=== PATIENT | female | born 1950 | race Caucasian/White ===

== ENCOUNTER 2022-10-23 12:12 | Inpatient (IN) | payer MEDICARE ==
[2022-10-23] MEDS ORDERED: Glucagon 1 MG/ML KIT IM PRN (13:47)
[2022-10-23] MEDS ORDERED: Dextrose 50% Abboject 50 ML SYRINGE SLOW IVP PRN (13:47)
[2022-10-23] MEDS ORDERED: Guaifenesin DM 100-10/5 ML UDCUP PO PRN (13:48)
[2022-10-23] MEDS ORDERED: Sodium Chloride 0.65% Nasal 44 ML BOT EA NARE PRN (13:48)
[2022-10-23] MEDS ORDERED: Acetaminophen 325 MG TAB PO PRN (13:48)
[2022-10-23] MEDS ORDERED: Benzonatate 100 MG CAP PO PRN (13:48)
[2022-10-23] MEDS ORDERED: Acetaminophen 650 MG Suppository PR PRN (13:48)
[2022-10-23] MEDS ORDERED: Calcium Carbonate 500 MG ChewTAB PO PRN (13:48)
[2022-10-23] MEDS ORDERED: Ondansetron ODT 4 MG TAB PO PRN ×2 (13:48→19:35)
[2022-10-23] MEDS ORDERED: Benzocaine/Menthol 1 LOZ LOZ PO PRN (13:48)
[2022-10-23] MEDS ORDERED: Artificial Tear Sol 15 ML BOT EA EYE PRN (13:48)
[2022-10-23 18:04] VITALS: BMI 34.2
[2022-10-23] MEDS ORDERED: Ipratropium/Albuterol 3 ML NEB NEB PRN (19:35)
[2022-10-23] MEDS ORDERED: traMADol HCl 50 MG TAB PO PRN (19:35)
[2022-10-23] MEDS ORDERED: Non-Formulary Item 1 EACH (Dulaglutide [Trulicity] 1.5 MG/0.5 ML Pen.Injctr) SC SCH (19:45)
[2022-10-23] MEDS: Aspirin 81 mg Enteric Coated Tablet PO SCH (21:50)
[2022-10-23] MEDS: Cyclobenzaprine 10 MG TAB PO PRN (21:53)
[2022-10-24] MEDS: HYDROcodone/Acetaminophen 5/325 mg Tablet PO PRN ×4 (00:12→21:51)
[2022-10-24 06:15] LABS: #Basophils 0.1 thou/uL (0.0-0.2); #Eosinphils 0.2 thou/uL (0.0-0.7); #Lymphocytes 2.1 thou/uL (1.20-3.40); #Monocytes 0.5 thou/uL (0.11-0.59); #Neutrophils 3.5 thou/uL (1.40-6.50); %Basophils 1.4 % (0.0-1.0); %Eosinophils 3.7 % (0.0-10.0); %Lymphocytes 32.6 % (21.0-51.0); %Monocytes 7.9 % (0.0-10.0); %Neutrophils 54.4 % (42.0-75.0); Hemoglobin 9.4 g/dL (12.0-16.0); Mean Corpuscular HGB CONC 32.5 g/dL (32.0-36.0); Mean Corpuscular Hemoglobin 28.3 pg (27.0-31.0); Mean Corpuscular Volume 87.1 fl (78.0-98.0); Mean Platelet Volume 5.7 fL (7.4-10.4); Platelet Count 379 10x3/uL (130-400); RBC Distribution Width 12.7 % (11.5-14.5); White Blood Cell (WBC) Count 6.4 10x3/uL (4.8-10.8)
[2022-10-24 06:34] LABS: ALT (SGPT) 27 U/L (8-55); AST (SGOT) 28 U/L (5-34); Albumin 3.3 g/dL (3.4-4.8); Alkaline Phosphatase 131 U/L (40-110); Anion Gap 15 mmol/L (10-20); BUN (Urea Nitrogen) 15 mg/dL (9.8-20.1); Bilirubin, Total 0.4 mg/dL (0.2-1.2); Calc. Creatinine Clearance 116 mL/min (70-130); Calcium 8.9 mg/dL (7.8-10.44); Carbon Dioxide 22 mmol/L (23-31); Chloride 107 mmol/L (98-107); Estimated GFR 96; Globulin 2.6 g/dL (2.4-3.5); Glucose 77 mg/dL (83-110); Potassium 3.4 mmol/L (3.5-5.1); Protein, Total 5.9 g/dL (5.8-8.1); Sodium 141 mmol/L (136-145)
[2022-10-24] MEDS: Cyclobenzaprine 10 MG TAB PO PRN ×2 (09:03→21:51)
[2022-10-24] MEDS: Venlafaxine HCl XR 75 MG CAP PO SCH (09:03)
[2022-10-24] MEDS: Aspirin 81 mg Enteric Coated Tablet PO SCH ×2 (09:04→20:44)
[2022-10-24] MEDS: Gabapentin 300 MG CAP PO SCH (09:04)
[2022-10-24] MEDS: Amlodipine 10 MG TAB PO SCH (09:05)
[2022-10-24] MEDS: Cyanocobalamin (Vitamin B-12) 1,000 MCG TAB PO SCH (09:05)
[2022-10-24] MEDS: Cholecalciferol (Vitamin D3) 400 UNITS TAB PO SCH (09:05)
[2022-10-24] MEDS: Famotidine 20 MG TAB PO SCH (09:06)
[2022-10-24] MEDS: Docusate Sodium 100 MG/10 ML UDCUP PO SCH (09:06)
[2022-10-24] MEDS: Empagliflozin 10 MG TAB PO SCH (09:06)
[2022-10-24] MEDS: Atorvastatin Calcium 40 MG TAB PO SCH (09:07)
[2022-10-24] MEDS: Lantus 1000 UNITS/10 ML VIAL SC SCH (09:14)
[2022-10-24] MEDS: D-Mannose [Azo D-Mannose] 500 MG Capsule PO SCH (09:54)
[2022-10-24] MEDS: HumaLOG 300 UNITS/3 ML VIAL SC PRN ×2 (13:03→17:07)
[2022-10-24] MEDS: Senokot S 8.6-50 MG TAB PO PRN (22:27)
[2022-10-25] MEDS: Bisacodyl 5 MG TAB PO PRN (07:53)
[2022-10-25] MEDS: Docusate Sodium 100 MG/10 ML UDCUP PO SCH (07:54)
[2022-10-25] MEDS: Famotidine 20 MG TAB PO SCH (07:54)
[2022-10-25] MEDS: Aspirin 81 mg Enteric Coated Tablet PO SCH ×2 (07:55→20:15)
[2022-10-25] MEDS: Venlafaxine HCl XR 75 MG CAP PO SCH (07:55)
[2022-10-25] MEDS: Atorvastatin Calcium 40 MG TAB PO SCH (07:55)
[2022-10-25] MEDS: Cyanocobalamin (Vitamin B-12) 1,000 MCG TAB PO SCH (07:55)
[2022-10-25] MEDS: Cyclobenzaprine 10 MG TAB PO PRN (07:56)
[2022-10-25] MEDS: Empagliflozin 10 MG TAB PO SCH (07:56)
[2022-10-25] MEDS: Cholecalciferol (Vitamin D3) 400 UNITS TAB PO SCH (07:56)
[2022-10-25] MEDS: HYDROcodone/Acetaminophen 5/325 mg Tablet PO PRN ×3 (07:58→18:31)
[2022-10-25] MEDS: Gabapentin 300 MG CAP PO SCH (08:01)
[2022-10-25] MEDS: Lantus 1000 UNITS/10 ML VIAL SC SCH (08:05)
[2022-10-25] MEDS: Amlodipine 10 MG TAB PO SCH (08:14)
[2022-10-25] MEDS: D-Mannose [Azo D-Mannose] 500 MG Capsule PO SCH (11:42)
[2022-10-25] MEDS ORDERED: TRULICITY 1.5 MG/0.5 ML SC SCH (18:00)
[2022-10-25] MEDS: HumaLOG 300 UNITS/3 ML VIAL SC PRN ×2 (18:58→22:31)
[2022-10-25] MEDS: Senokot S 8.6-50 MG TAB PO PRN (20:15)
[2022-10-26] MEDS: HYDROcodone/Acetaminophen 5/325 mg Tablet PO PRN ×3 (01:00→21:37)
[2022-10-26] MEDS: Bisacodyl 5 MG TAB PO PRN (08:58)
[2022-10-26] MEDS: Famotidine 20 MG TAB PO SCH (08:59)
[2022-10-26] MEDS: Atorvastatin Calcium 40 MG TAB PO SCH (08:59)
[2022-10-26] MEDS: Venlafaxine HCl XR 75 MG CAP PO SCH (08:59)
[2022-10-26] MEDS: Cyanocobalamin (Vitamin B-12) 1,000 MCG TAB PO SCH (08:59)
[2022-10-26] MEDS: Docusate Sodium 100 MG/10 ML UDCUP PO SCH (08:59)
[2022-10-26] MEDS: Cholecalciferol (Vitamin D3) 400 UNITS TAB PO SCH (08:59)
[2022-10-26] MEDS: Aspirin 81 mg Enteric Coated Tablet PO SCH ×2 (09:00→19:56)
[2022-10-26] MEDS: Gabapentin 300 MG CAP PO SCH (09:00)
[2022-10-26] MEDS: Amlodipine 10 MG TAB PO SCH (09:00)
[2022-10-26] MEDS: Empagliflozin 10 MG TAB PO SCH (09:00)
[2022-10-26] MEDS: Lantus 1000 UNITS/10 ML VIAL SC SCH (09:02)
[2022-10-26] MEDS: Cyclobenzaprine 10 MG TAB PO PRN (14:21)
[2022-10-26] MEDS: Bisacodyl 10 MG SUPP PR PRN (19:56)
[2022-10-27] MEDS: Cyclobenzaprine 10 MG TAB PO PRN ×3 (00:06→20:40)
[2022-10-27] MEDS: Venlafaxine HCl XR 75 MG CAP PO SCH (08:22)
[2022-10-27] MEDS: Docusate Sodium 100 MG/10 ML UDCUP PO SCH (08:22)
[2022-10-27] MEDS: HYDROcodone/Acetaminophen 5/325 mg Tablet PO PRN ×3 (08:22→20:40)
[2022-10-27] MEDS: Gabapentin 300 MG CAP PO SCH (08:24)
[2022-10-27] MEDS: Famotidine 20 MG TAB PO SCH (08:24)
[2022-10-27] MEDS: Cyanocobalamin (Vitamin B-12) 1,000 MCG TAB PO SCH (08:24)
[2022-10-27] MEDS: Cholecalciferol (Vitamin D3) 400 UNITS TAB PO SCH (08:25)
[2022-10-27] MEDS: Atorvastatin Calcium 40 MG TAB PO SCH (08:25)
[2022-10-27] MEDS: Empagliflozin 10 MG TAB PO SCH (08:25)
[2022-10-27] MEDS: Amlodipine 10 MG TAB PO SCH (08:25)
[2022-10-27] MEDS: Aspirin 81 mg Enteric Coated Tablet PO SCH ×2 (08:25→20:39)
[2022-10-27] MEDS: Lantus 1000 UNITS/10 ML VIAL SC SCH (08:26)
[2022-10-28] MEDS: HYDROcodone/Acetaminophen 5/325 mg Tablet PO PRN ×3 (01:22→16:36)
[2022-10-28 06:03] LABS: #Basophils 0.1 thou/uL (0.0-0.2); #Eosinphils 0.2 thou/uL (0.0-0.7); #Lymphocytes 2.8 thou/uL (1.20-3.40); #Monocytes 0.8 thou/uL (0.11-0.59); #Neutrophils 3.6 thou/uL (1.40-6.50); %Basophils 1.6 % (0.0-1.0); %Eosinophils 3.1 % (0.0-10.0); %Lymphocytes 37.4 % (21.0-51.0); %Monocytes 10.2 % (0.0-10.0); %Neutrophils 47.7 % (42.0-75.0); Hemoglobin 9.5 g/dL (12.0-16.0); Mean Corpuscular HGB CONC 31.5 g/dL (32.0-36.0); Mean Corpuscular Hemoglobin 27.9 pg (27.0-31.0); Mean Corpuscular Volume 88.6 fl (78.0-98.0); Mean Platelet Volume 4.9 fL (7.4-10.4); Platelet Count 494 10x3/uL (130-400); RBC Distribution Width 13.4 % (11.5-14.5); Red Blood Cell (RBC) Count 3.42 mill/uL (4.20-5.40); White Blood Cell (WBC) Count 7.5 10x3/uL (4.8-10.8)
[2022-10-28 06:21] LABS: Anion Gap 15 mmol/L (10-20); BUN (Urea Nitrogen) 14 mg/dL (9.8-20.1); Calc. Creatinine Clearance 100 mL/min (70-130); Calcium 9.4 mg/dL (7.8-10.44); Carbon Dioxide 24 mmol/L (23-31); Chloride 105 mmol/L (98-107); Estimated GFR 93; Glucose 122 mg/dL (83-110); Magnesium 2.4 mg/dL (1.6-2.6); Potassium 4.2 mmol/L (3.5-5.1); Sodium 140 mmol/L (136-145)
[2022-10-28] MEDS: Docusate Sodium 100 MG/10 ML UDCUP PO SCH (10:41)
[2022-10-28] MEDS: Amlodipine 10 MG TAB PO SCH (10:43)
[2022-10-28] MEDS: Empagliflozin 10 MG TAB PO SCH (10:44)
[2022-10-28] MEDS: Famotidine 20 MG TAB PO SCH (10:44)
[2022-10-28] MEDS: Venlafaxine HCl XR 75 MG CAP PO SCH (10:46)
[2022-10-28] MEDS: Gabapentin 300 MG CAP PO SCH (10:46)
[2022-10-28] MEDS: Atorvastatin Calcium 40 MG TAB PO SCH (10:47)
[2022-10-28] MEDS: Aspirin 81 mg Enteric Coated Tablet PO SCH ×2 (10:47→20:52)
[2022-10-28] MEDS: Cyanocobalamin (Vitamin B-12) 1,000 MCG TAB PO SCH (10:47)
[2022-10-28] MEDS: Cholecalciferol (Vitamin D3) 400 UNITS TAB PO SCH (10:54)
[2022-10-28] MEDS: HumaLOG 300 UNITS/3 ML VIAL SC PRN (10:55)
[2022-10-28] MEDS: Lantus 1000 UNITS/10 ML VIAL SC SCH (10:56)
[2022-10-28] MEDS: Cyclobenzaprine 10 MG TAB PO PRN (16:36)
[2022-10-28] MEDS: Senokot S 8.6-50 MG TAB PO PRN (20:52)
[2022-10-29] MEDS: HYDROcodone/Acetaminophen 5/325 mg Tablet PO PRN ×3 (06:53→20:24)
[2022-10-29] MEDS: Cholecalciferol (Vitamin D3) 400 UNITS TAB PO SCH (08:04)
[2022-10-29] MEDS: Aspirin 81 mg Enteric Coated Tablet PO SCH ×2 (08:04→20:24)
[2022-10-29] MEDS: Venlafaxine HCl XR 75 MG CAP PO SCH (08:04)
[2022-10-29] MEDS: Gabapentin 300 MG CAP PO SCH (08:05)
[2022-10-29] MEDS: Famotidine 20 MG TAB PO SCH (08:05)
[2022-10-29] MEDS: Amlodipine 10 MG TAB PO SCH (08:06)
[2022-10-29] MEDS: Cyanocobalamin (Vitamin B-12) 1,000 MCG TAB PO SCH (08:06)
[2022-10-29] MEDS: Empagliflozin 10 MG TAB PO SCH (08:06)
[2022-10-29] MEDS: Docusate Sodium 100 MG/10 ML UDCUP PO SCH (08:10)
[2022-10-29] MEDS: Cyclobenzaprine 10 MG TAB PO PRN ×2 (08:10→20:26)
[2022-10-29] MEDS: Lantus 1000 UNITS/10 ML VIAL SC SCH (08:16)
[2022-10-29] MEDS: Atorvastatin Calcium 40 MG TAB PO SCH (08:18)
[2022-10-29] MEDS: Bisacodyl 10 MG SUPP PR PRN (13:54)
[2022-10-30] MEDS: HYDROcodone/Acetaminophen 5/325 mg Tablet PO PRN ×4 (00:20→20:53)
[2022-10-30] MEDS: Docusate Sodium 100 MG/10 ML UDCUP PO SCH (08:12)
[2022-10-30] MEDS: Venlafaxine HCl XR 75 MG CAP PO SCH (08:13)
[2022-10-30] MEDS: Famotidine 20 MG TAB PO SCH (08:13)
[2022-10-30] MEDS: Aspirin 81 mg Enteric Coated Tablet PO SCH ×2 (08:13→20:53)
[2022-10-30] MEDS: Cyanocobalamin (Vitamin B-12) 1,000 MCG TAB PO SCH (08:13)
[2022-10-30] MEDS: Atorvastatin Calcium 40 MG TAB PO SCH (08:14)
[2022-10-30] MEDS: Cholecalciferol (Vitamin D3) 400 UNITS TAB PO SCH (08:14)
[2022-10-30] MEDS: Gabapentin 300 MG CAP PO SCH (08:14)
[2022-10-30] MEDS: Amlodipine 10 MG TAB PO SCH (08:15)
[2022-10-30] MEDS: Empagliflozin 10 MG TAB PO SCH (08:15)
[2022-10-30] MEDS: Lantus 1000 UNITS/10 ML VIAL SC SCH (08:16)
[2022-10-30] MEDS: Cyclobenzaprine 10 MG TAB PO PRN ×2 (08:28→20:53)
[2022-10-31] MEDS: Docusate Sodium 100 MG/10 ML UDCUP PO SCH (07:53)
[2022-10-31] MEDS: HYDROcodone/Acetaminophen 5/325 mg Tablet PO PRN ×3 (07:53→23:59)
[2022-10-31] MEDS: Amlodipine 10 MG TAB PO SCH (07:54)
[2022-10-31] MEDS: Gabapentin 300 MG CAP PO SCH (07:54)
[2022-10-31] MEDS: Cholecalciferol (Vitamin D3) 400 UNITS TAB PO SCH (07:54)
[2022-10-31] MEDS: Famotidine 20 MG TAB PO SCH (07:55)
[2022-10-31] MEDS: Atorvastatin Calcium 40 MG TAB PO SCH (07:55)
[2022-10-31] MEDS: Cyanocobalamin (Vitamin B-12) 1,000 MCG TAB PO SCH (07:55)
[2022-10-31] MEDS: Aspirin 81 mg Enteric Coated Tablet PO SCH ×2 (07:55→20:50)
[2022-10-31] MEDS: Venlafaxine HCl XR 75 MG CAP PO SCH (07:55)
[2022-10-31] MEDS: Empagliflozin 10 MG TAB PO SCH (07:55)
[2022-10-31] MEDS: Lantus 1000 UNITS/10 ML VIAL SC SCH (07:56)
[2022-11-01] MEDS: HYDROcodone/Acetaminophen 5/325 mg Tablet PO PRN ×3 (08:26→21:12)
[2022-11-01] MEDS: Venlafaxine HCl XR 75 MG CAP PO SCH (08:29)
[2022-11-01] MEDS: Famotidine 20 MG TAB PO SCH (08:29)
[2022-11-01] MEDS: Aspirin 81 mg Enteric Coated Tablet PO SCH ×2 (08:29→21:08)
[2022-11-01] MEDS: Amlodipine 10 MG TAB PO SCH (08:30)
[2022-11-01] MEDS: Gabapentin 300 MG CAP PO SCH (08:30)
[2022-11-01] MEDS: Atorvastatin Calcium 40 MG TAB PO SCH (08:30)
[2022-11-01] MEDS: Empagliflozin 10 MG TAB PO SCH (08:31)
[2022-11-01] MEDS: Cholecalciferol (Vitamin D3) 400 UNITS TAB PO SCH (08:31)
[2022-11-01] MEDS: Cyanocobalamin (Vitamin B-12) 1,000 MCG TAB PO SCH (08:31)
[2022-11-01] MEDS: Docusate Sodium 100 MG/10 ML UDCUP PO SCH (08:31)
[2022-11-01] MEDS: Lantus 1000 UNITS/10 ML VIAL SC SCH (08:38)
[2022-11-01] MEDS: Cyclobenzaprine 10 MG TAB PO PRN (12:03)
[2022-11-01] MEDS: HumaLOG 300 UNITS/3 ML VIAL SC PRN (16:05)
[2022-11-01] MEDS ORDERED: TRULICITY 1.5 MG/0.5 ML SC SCH (21:00)
[2022-11-02 07:52] VITALS: BP 110/53; TEMP 97
[2022-11-02] MEDS: HYDROcodone/Acetaminophen 5/325 mg Tablet PO PRN ×2 (08:34→12:39)
[2022-11-02] MEDS: Venlafaxine HCl XR 75 MG CAP PO SCH (08:37)
[2022-11-02] MEDS: Amlodipine 10 MG TAB PO SCH (08:37)
[2022-11-02] MEDS: Docusate Sodium 100 MG/10 ML UDCUP PO SCH (08:37)
[2022-11-02] MEDS: Atorvastatin Calcium 40 MG TAB PO SCH (08:37)
[2022-11-02] MEDS: Gabapentin 300 MG CAP PO SCH (08:38)
[2022-11-02] MEDS: Aspirin 81 mg Enteric Coated Tablet PO SCH (08:38)
[2022-11-02] MEDS: Famotidine 20 MG TAB PO SCH (08:38)
[2022-11-02] MEDS: Cholecalciferol (Vitamin D3) 400 UNITS TAB PO SCH (08:39)
[2022-11-02] MEDS: Cyanocobalamin (Vitamin B-12) 1,000 MCG TAB PO SCH (08:39)
[2022-11-02] MEDS: Empagliflozin 10 MG TAB PO SCH (08:39)
[2022-11-02] MEDS: Lantus 1000 UNITS/10 ML VIAL SC SCH (08:40)
== END 2022-11-02 13:30 | disposition home health service (06) | DRG 561 ==
LOC: NAV ACUTE 17:19
PROVIDERS: ADMIT Family Medicine; ATTEND Family Medicine
DX: S72.011D Unspecified intracapsular fracture of right femur, subsequent encounter for closed fracture with routine healing (principal); Z96.641 Presence of right artificial hip joint; F32.A Depression, unspecified; E11.42 Type 2 diabetes mellitus with diabetic polyneuropathy; E11.65 Type 2 diabetes mellitus with hyperglycemia; E78.2 Mixed hyperlipidemia; E87.6 Hypokalemia; K59.00 Constipation, unspecified; R20.2 Paresthesia of skin; I10 Essential (primary) hypertension; Z90.710 Acquired absence of both cervix and uterus; Z79.899 Other long term (current) drug therapy; Z79.4 Long term (current) use of insulin; Z79.82 Long term (current) use of aspirin
CPT/HCPCS: 36415; 36416; 80048; 80053; 83735; 85025; J1815